=== PATIENT | male | born 1995 | race African-American/Black ===

== ENCOUNTER 2019-01-29 08:20 | Emergency (ER) | payer OTHER, SELFPAY ==
[2019-01-29] MEDS ORDERED: ONDANSETRON 4 MG (ODT) TAB ONE (09:06)
--- NOTE | 2019-01-29 09:43 | EDPHYS ---
Physician Documentation [facility] Name: Leandro Merino Age: 23 yrs Sex: Male : 1995 Arrival Date: 01/29/2019 Time: 08:25 Bed 16 Private MD: Unknown, Unknown ED Physician Zay Vinson HPI: 01/29 08:50 This 23 yrs old Black Male presents to ER via Ambulatory with complaints of Fever, cp MUSCLE TIGHTNESS. 08:50 The patient reports fever, not measured (subjective). Onset: The symptoms/episode cp began/occurred yesterday. Associated signs and symptoms: Pertinent positives: cough, nausea, sore throat, body aches and generalized muscle tightness, Pertinent negatives: diarrhea, headache, skin rash, vomiting. Historical: - Allergies: 08:27 No Known Allergies; rb1 - Home Meds: 08:27 None [Active]; rb1 - PMHx: 08:27 None; rb1 - PSHx: 08:27 Left leg; rb1 - Immunization history:: Flu vaccine is not up to date. - Social history:: Smoking status: Patient/guardian denies using tobacco. - Ebola Screening: : Patient negative for fever greater than or equal to 101.5 degrees Fahrenheit, and additional compatible Ebola Virus Disease symptoms. ROS: 08:55 Constitutional: Positive for body aches, Negative for fever, poor PO intake. cp 08:55 Eyes: Negative for injury, pain, redness, and discharge. cp 08:55 ENT: Positive for sore throat, Negative for drainage from ear(s), ear pain, sinus pain, difficulty swallowing, difficulty handling secretions. 08:55 Neck: Negative for pain with movement, pain at rest, stiffness. 08:55 Respiratory: Positive for cough, Negative for shortness of breath, wheezing. 08:55 Abdomen/GI: Positive for nausea, Negative for vomiting, diarrhea, constipation. 08:55 Skin: Negative for rash. 08:55 Neuro: Negative for altered mental status, headache, weakness. 08:55 All other systems are negative. Exam: 09:00 Head/Face: Normocephalic, atraumatic. cp 09:00 Constitutional: The patient appears in no acute distress, alert, awake, non-toxic, well developed, well nourished. 09:00 Eyes: Periorbital structures: appear normal, Conjunctiva: normal, no exudate, no injection, Lids and lashes: appear normal, bilaterally. 09:00 ENT: External ear(s): are unremarkable, Ear canal(s): are normal, clear, TM's: bulging, is not appreciated, bilaterally, dullness, bilaterally, erythema, is not appreciated, bilaterally, Nose: is normal, Mouth: Lips: moist, Oral mucosa: moist, Posterior pharynx: Airway: no evidence of obstruction, patent, Tonsils: with erythema, no enlargement, no exudate, Uvula: midline, swelling, is not appreciated, erythema, that is moderate, exudate, is not appreciated, Voice: is normal. 09:00 Neck: ROM/movement: is normal, is supple, without pain, no range of motions limitations, no meningismus, no nuchal rigidity, Lymph nodes: no appreciated lymphadenopathy. 09:00 Chest/axilla: Inspection: normal, Palpation: is normal, no crepitus, no tenderness. 09:00 Cardiovascular: Rate: normal, Rhythm: regular. 09:00 Respiratory: the patient does not display signs of respiratory distress, Respirations: normal, no use of accessory muscles, no retractions, no splinting, no tachypnea, labored breathing, is not present, Breath sounds: are clear throughout, no decreased breath sounds, no stridor, no wheezing. 09:00 Abdomen/GI: Exam negative for discomfort, distension, guarding, Inspection: abdomen appears normal. 09:00 Back: pain, is absent, ROM is normal. 09:00 Skin: no rash present. Vital Signs: 08:27 BP 118 / 97; Pulse 84; Resp 17; Temp 99.0(O); Pulse Ox 97% on R/A; Weight 83.91 kg (R); rb1 Height 5 ft. 7 in. (170.18 cm) (R); Pain 8/10; 09:35 BP 120 / 72; Pulse 60; Resp 16; Temp 98.9(O); Pulse Ox 98% on R/A; mh5 10:19 BP 120 / 72; Pulse 64; Resp 17; Temp 98.7(O); Pulse Ox 100% on R/A; Pain 6/10; rb1 08:27 Body Mass Index 28.97 (83.91 kg, 170.18 cm) rb1 MDM: 08:28 Patient medically screened. cp 09:00 Differential diagnosis: bronchitis, pneumonia gastroenteritis, meningitis, strep cp throat, influenza. 09:42 Data reviewed: vital signs, nurses notes, lab test result(s), and as a result, I will cp discharge patient. 09:42 Counseling: I had a detailed discussion with the patient and/or guardian regarding: the cp historical points, exam findings, and any diagnostic results supporting the discharge/admit diagnosis, lab results, to return to the emergency department if symptoms worsen or persist or if there are any questions or concerns that arise at home. Response to treatment: the patient's symptoms have mildly improved after treatment, and as a result, I will discharge patient. 01/29 08:47 Order name: Influenza Screen (a \T\ B); Complete Time: 09:33 cp 01/29 09:33 Interpretation: Reviewed. 01/29 08:47 Order name: Strep; Complete Time: 09:33 cp 01/29 09:33 Interpretation: Abnormal: GP A STREP SC \T\nbsp; GROUP A STREP SCREEN-- \T\nbsp; \T\nbsp; cp POSITIVE. Administered Medications: 08:55 Drug: Zofran 4 mg Route: PO; rb1 09:20 Follow up: Response: No adverse reaction; Nausea is decreased rb1 09:59 Drug: Bicillin L-A 1.2 million units Route: IM; Site: right gluteus; rb1 10:19 Follow up: Response: No adverse reaction rb1 Disposition: 01/30 07:20 Co-signature as Attending Physician, Zay Vinson MD I agree with the assessment and consuelo plan of care. Disposition: 01/29/19 09:42 Discharged to Home. Impression: Streptococcal pharyngitis. - Condition is Stable. - Discharge Instructions: Strep Throat, Form - Excuse from Work, School, or Physical Activity. - Prescriptions for Ibuprofen 800 mg Oral Tablet - take 1 tablet by ORAL route every 8 hours As needed take with food; 30 tablet. Zofran 4 mg Oral Tablet - take 1 tablet by ORAL route every 12 hours As needed; 10 tablet. - Medication Reconciliation Form, Thank You Letter, Antibiotic Education, Prescription Opioid Use, Work release form form. - Follow up: Private Physician; When: 48 Hours; Reason: Worsening of condition. - Problem is new. - Symptoms have improved. Signatures: Dispatcher [employer] EDZay Freeman MD MD cha Page, Corey, Miriam Biggs cp, RN RN rb1 Corrections: (The following items were deleted from the chart) 01/29 10:21 09:42 01/29/2019 09:42 Discharged to Home. Impression: Streptococcal pharyngitis. rb1 Condition is Stable. Forms are Medication Reconciliation Form, Thank You Letter, Antibiotic Education, Prescription Opioid Use. Follow up: Private Physician; When: 48 Hours; Reason: Worsening of condition. Problem is new. Symptoms have improved. cp
--- NOTE | 2019-01-29 09:43 | ER ---
Nurse's Notes [facility] Name: Leandro Merino Age: 23 yrs Sex: Male : 1995 Arrival Date: 01/29/2019 Time: 08:25 Bed 16 Private MD: Unknown, Unknown Diagnosis: Streptococcal pharyngitis Presentation: 01/29 08:27 Presenting complaint: Patient states: Started running fever yesterday. Transition of rb1 care: patient was not received from another setting of care. Onset of symptoms was January 28, 2019. Risk Assessment: Do you want to hurt yourself or someone else? Patient reports no desire to harm self or others. Care prior to arrival: Medication(s) given: Advil \T\ 0630 this morning. 08:27 Method Of Arrival: Ambulatory [facility] 08: Acuity: NICOLE 3 rb1 08: Initial Sepsis Screen: Does the patient meet any 2 criteria? No. Patient's initial rb1 sepsis screen is negative. Does the patient have a suspected source of infection? Yes: Productive cough/pneumonia. Triage Assessment: 08:27 General: Appears uncomfortable, Behavior is calm, cooperative, Reports fever for 1-2 rb1 days. Pain: Complains of pain in bodyaches Pain currently is 8 out of 10 on a pain scale. Pain began 1 day ago. Neuro: Level of Consciousness is awake, alert, obeys commands, Oriented to person, place, time, situation. Cardiovascular: Capillary refill < 3 seconds is brisk in bilateral fingers. Respiratory: Reports cough that is productive, yellow sputum Airway is patent Respiratory effort is even, unlabored, Respiratory pattern is regular, symmetrical. GI: No signs and/or symptoms were reported involving the gastrointestinal system. : No signs and/or symptoms were reported regarding the genitourinary system. Derm: Skin is dry, Skin is normal, Skin temperature is warm. Historical: - Allergies: : No Known Allergies; rb1 - Home Meds: : None [Active]; rb1 - PMHx: : None; rb1 - PSHx: : Left leg; rb1 - Immunization history:: Flu vaccine is not up to date. - Social history:: Smoking status: Patient/guardian denies using tobacco. - Ebola Screening: : Patient negative for fever greater than or equal to 101.5 degrees Fahrenheit, and additional compatible Ebola Virus Disease symptoms. Screenin:27 Abuse screen: Denies threats or abuse. Nutritional screening: No deficits noted. rb1 Tuberculosis screening: No symptoms or risk factors identified. Fall Risk None identified. Assessment: 08:27 General: See triage assessment. rb1 08:40 Reassessment: Pt. is feeling nauseous, provider notified. rb1 09:25 Reassessment: Patient appears in no apparent distress at this time. Patient and/or rb1 family updated on plan of care and expected duration. Pain level reassessed. Patient is alert, oriented x 3, equal unlabored respirations, skin warm/dry/pink. Patient states symptoms have improved. 10:00 Reassessment: Discharge pending due to shot time. rb1 Vital Signs: 08:27 BP 118 / 97; Pulse 84; Resp 17; Temp 99.0(O); Pulse Ox 97% on R/A; Weight 83.91 kg (R); rb1 Height 5 ft. 7 in. (170.18 cm) (R); Pain 8/10; 09:35 BP 120 / 72; Pulse 60; Resp 16; Temp 98.9(O); Pulse Ox 98% on R/A; mh5 10:19 BP 120 / 72; Pulse 64; Resp 17; Temp 98.7(O); Pulse Ox 100% on R/A; Pain 6/10; rb1 08:27 Body Mass Index 28.97 (83.91 kg, 170.18 cm) rb1 ED Course: 08:25 Patient arrived in ED. ag5 08:26 Unknown, Unknown is Private Physician. ag5 08:27 Miriam Seaman, RN is Primary Nurse. rb1 08:27 Arm band placed on right wrist. rb1 08:27 Patient has correct armband on for positive identification. Bed in low position. Call rb1 light in reach. Side rails up X 1. Pulse ox on. NIBP on. 08:28 Zay Dunne PA is PHCP. cp 08:28 Zay Vinson MD is Attending Physician. cp 08:35 Triage completed. rb1 09:00 Strep Sent. rb1 09:00 Influenza Screen (a \T\ B) Sent. rb1 10:20 No provider procedures requiring assistance completed. Patient did not have IV access rb1 during this emergency room visit. Administered Medications: 08:55 Drug: Zofran 4 mg Route: PO; rb1 09:20 Follow up: Response: No adverse reaction; Nausea is decreased rb1 09:59 Drug: Bicillin L-A 1.2 million units Route: IM; Site: right gluteus; rb1 10:19 Follow up: Response: No adverse reaction rb1 Outcome: 09:42 Discharge ordered by . cp 10:20 Discharged to home ambulatory, with significant other. rb1 10:20 Condition: stable 10:20 Discharge instructions given to patient, Instructed on discharge instructions, follow up and referral plans. medication usage, Demonstrated understanding of instructions, follow-up care, medications, Prescriptions given X 2. 10:21 Patient left the ED. rb1 Signatures: Zay Dunne PA PA cp Barber, Rebecca RN RN rb1 Lisbeth Cruz [facility] Isaac Moffett [facility]
[2019-01-29] MEDS ORDERED: PEN G BENZ LA 1.2MU/2ML SYRINGE IM ONE (10:12)
[2019-01-29 10:33] VITALS: BP 120/72; TEMP 98.7; O2SAT 100
== END 2019-01-29 10:21 | disposition home or self-care (01) ==
LOC: ER 08:20
DX: J02.0 Streptococcal pharyngitis (principal)
CPT/HCPCS: 87081; 87804; 96372; 99284; J0561

== ENCOUNTER 2019-04-13 11:12 | Emergency (ER) | payer SELFPAY ==
--- NOTE | 2019-04-13 11:45 | RAD REPORT ---
EXAM DESCRIPTION: RAD - Chest Pa And Lat (2 Views) - 04/13/2019 11:41 am CLINICAL HISTORY: COUGH Chest pain. COMPARISON: No comparisons FINDINGS: The lungs are clear. The heart is normal in size. No displaced fractures. IMPRESSION: No acute or concerning finding suspected.
[2019-04-13] MEDS ORDERED: IBUPROFEN 400 MG TAB ONE (11:50)
[2019-04-13] MEDS ORDERED: ONDANSETRON 4 MG (ODT) TAB ONE (11:50)
--- NOTE | 2019-04-13 12:40 | ER ---
Nurse's Notes [facility] Name: Leandro Merino Age: 23 yrs Sex: Male : 1995 Arrival Date: 04/13/2019 Time: 11:16 Bed 13 Private MD: None, None Diagnosis: Acute pharyngitis Presentation: 04/13 11:18 Presenting complaint: Patient states: sore throat since yesterday, pt states "it hurts aa5 to swallow and today I started coughing and I coughed up blood at work so they made me leave work". Pt also reports nausea. Pt denies night sweats, denies chills. Transition of care: patient was not received from another setting of care. Onset of symptoms was March 2019. Risk Assessment: Do you want to hurt yourself or someone else? Patient reports no desire to harm self or others. Care prior to arrival: None. 11:18 Acuity: NICOLE 3 aa5 11:18 Method Of Arrival: Ambulatory aa5 12:59 Initial Sepsis Screen: Does the patient meet any 2 criteria? No. Patient's initial bp sepsis screen is negative. Does the patient have a suspected source of infection? No. Patient's initial sepsis screen is negative. Triage Assessment: 11:20 General: Appears in no apparent distress. comfortable, Behavior is calm, cooperative, bp appropriate for age. Pain: Complains of pain in THROAT. EENT: Reports pain when swallowing. Neuro: No deficits noted. Cardiovascular: No deficits noted. Respiratory: No deficits noted. GI: No signs and/or symptoms were reported involving the gastrointestinal system. : No signs and/or symptoms were reported regarding the genitourinary system. Derm: No deficits noted. Musculoskeletal: No deficits noted. Historical: - Allergies: 11:20 No Known Allergies; aa5 - Home Meds: 11:20 None [Active]; aa5 - PMHx: 11:20 None; aa5 - PSHx: 11:20 Left leg; aa5 - Immunization history:: Adult Immunizations not up to date. - Social history:: Smoking status: Patient/guardian denies using tobacco. - Ebola Screening: : No symptoms or risks identified at this time. Screenin:20 Abuse screen: Denies threats or abuse. Denies injuries from another. Nutritional bp screening: No deficits noted. Tuberculosis screening: No symptoms or risk factors identified. Fall Risk None identified. Assessment: 11:20 General: SEE TRIAGE NOTE. Respiratory: Airway is patent Respiratory effort is even, bp unlabored, Respiratory pattern is regular, symmetrical, Breath sounds are clear bilaterally. EENT: Throat is reddened. 12:58 Reassessment: PT D/C HOME AMBULATORY WITH FAMILY, DX WITH VIRAL PHARYNGITIS. bp Vital Signs: 11:20 BP 128 / 73; Pulse 92; Resp 18 S; Temp 101.4(O); Pulse Ox 98% on R/A; Weight 81.65 kg aa5 (R); Height 5 ft. 7 in. (170.18 cm) (R); Pain 8/10; 12:31 BP 123 / 66; Pulse 83; Resp 16; Temp 99.5; Pulse Ox 99% ; bp 11:20 Body Mass Index 28.19 (81.65 kg, 170.18 cm) aa5 ED Course: 11:16 Patient arrived in ED. mr 11:16 None, None is Private Physician. mr 11:19 Delmis Major, [facility] kb 11:19 Alexandro Thomas MD is Attending Physician. kb 11:19 Triage completed. aa5 11:19 Arm band placed on. aa5 11:20 Patient has correct armband on for positive identification. Bed in low position. Call bp light in reach. Side rails up X2. 11:28 Dylon Granados, RN is Primary Nurse. bp 11:35 X-ray completed. Patient tolerated procedure well. Patient moved back from radiology. jb2 11:37 Chest Pa And Lat (2 Views) XRAY In Process Unspecified. EDMS 12:28 Throat Culture Sent. bp 12:58 No provider procedures requiring assistance completed. Patient did not have IV access bp during this emergency room visit. Administered Medications: 11:54 Drug: Ibuprofen 600 mg Route: PO; bp 12:27 Follow up: Response: No adverse reaction bp 11:54 Drug: Zofran 4 mg Route: PO; bp 12:27 Follow up: Response: No adverse reaction bp Outcome: 12:40 Discharge ordered by . kb 12:59 Discharged to home ambulatory, with family. bp 12:59 Condition: stable 12:59 Discharge instructions given to patient, Instructed on discharge instructions, follow up and referral plans. Demonstrated understanding of instructions, follow-up care. 13:00 Patient left the ED. bp Signatures: Dispatcher [employer] EDMS Delmis Major, EZEQUIEL-Addie RAGMAN-Robi Yaz Vidales, Nadeem jb2 Marianne Andres, RN RN aa5 Dylon Granados RN RN bp Corrections: (The following items were deleted from the chart) 11:21 11:18 Presenting complaint: Patient states: sore throat since yesterday, pt states "it aa5 hurts to swallow and today I started coughing and I coughed up blood at work so they made me leave work". Pt also reports nausea. aa5
--- NOTE | 2019-04-13 12:41 | EDPHYS ---
Physician Documentation [facility] Name: Leandro Merino Age: 23 yrs Sex: Male : 1995 Arrival Date: 04/13/2019 Time: 11:16 Bed 13 Private MD: None, None ED Physician Alexandro Tohmas HPI: 04/13 12:25 This 23 yrs old Black Male presents to ER via Ambulatory with complaints of Sore Throat.kb 12:25 The patient presents with sore throat. The patient describes throat pain as constant. kb Onset: The symptoms/episode began/occurred 2 day(s) ago. Severity of symptoms: At their worst the symptoms were moderate, in the emergency department the symptoms are unchanged. Modifying factors: The symptoms are alleviated by nothing, the symptoms are aggravated by swallowing, Patient's oral intake status: good Denies contact with similarly ill indivduals. Associated signs and symptoms: Pertinent positives: cough, Sore throat. The patient has not experienced similar symptoms in the past. The patient has not recently seen a physician. Historical: - Allergies: 11:20 No Known Allergies; aa5 - Home Meds: 11:20 None [Active]; aa5 - PMHx: 11:20 None; aa5 - PSHx: 11:20 Left leg; aa5 - Immunization history:: Adult Immunizations not up to date. - Social history:: Smoking status: Patient/guardian denies using tobacco. - Ebola Screening: : No symptoms or risks identified at this time. ROS: 12:23 Constitutional: Negative for fever, chills, and weight loss, Neck: Negative for injury, kb pain, and swelling, Cardiovascular: Negative for chest pain, palpitations, and edema, Abdomen/GI: Negative for abdominal pain, nausea, vomiting, diarrhea, and constipation, Back: Negative for injury and pain, : Negative for injury, bleeding, discharge, and swelling, MS/Extremity: Negative for injury and deformity, Skin: Negative for injury, rash, and discoloration, Neuro: Negative for headache, weakness, numbness, tingling, and seizure. 12:23 ENT: Positive for sore throat. 12:23 Respiratory: Positive for cough, Negative for dyspnea on exertion, hemoptysis, orthopnea, pleurisy, shortness of breath, sputum production, wheezing. Exam: 12:23 Constitutional: This is a well developed, well nourished patient who is awake, alert, kb and in no acute distress. Head/Face: Normocephalic, atraumatic. Chest/axilla: Normal chest wall appearance and motion. Nontender with no deformity. No lesions are appreciated. Cardiovascular: Regular rate and rhythm with a normal S1 and S2. No gallops, murmurs, or rubs. Normal PMI, no JVD. No pulse deficits. Respiratory: Lungs have equal breath sounds bilaterally, clear to auscultation and percussion. No rales, rhonchi or wheezes noted. No increased work of breathing, no retractions or nasal flaring. Abdomen/GI: Soft, non-tender, with normal bowel sounds. No distension or tympany. No guarding or rebound. No evidence of tenderness throughout. Skin: Warm, dry with normal turgor. Normal color with no rashes, no lesions, and no evidence of cellulitis. MS/ Extremity: Pulses equal, no cyanosis. Neurovascular intact. Full, normal range of motion. Neuro: Awake and alert, GCS 15, oriented to person, place, time, and situation. Cranial nerves II-XII grossly intact. Motor strength 5/5 in all extremities. Sensory grossly intact. Cerebellar exam normal. Normal gait. 12:23 ENT: TM's: are normal, Nose: is normal, Mouth: is normal, Posterior pharynx: Airway: normal, no evidence of obstruction, Tonsils: with erythema, Uvula: normal, midline, swelling, that is mild, erythema, that is marked, exudate, is not appreciated. Vital Signs: 11:20 BP 128 / 73; Pulse 92; Resp 18 S; Temp 101.4(O); Pulse Ox 98% on R/A; Weight 81.65 kg aa5 (R); Height 5 ft. 7 in. (170.18 cm) (R); Pain 8/10; 12:31 BP 123 / 66; Pulse 83; Resp 16; Temp 99.5; Pulse Ox 99% ; bp 11:20 Body Mass Index 28.19 (81.65 kg, 170.18 cm) aa5 MDM: 11:22 Patient medically screened. kb 12:24 Data reviewed: vital signs, nurses notes. Data interpreted: Pulse oximetry: on room air kb is 98 %. Interpretation: normal. Counseling: I had a detailed discussion with the patient and/or guardian regarding: the historical points, exam findings, and any diagnostic results supporting the discharge/admit diagnosis, lab results, radiology results, the need for outpatient follow up, a family practitioner, to return to the emergency department if symptoms worsen or persist or if there are any questions or concerns that arise at home. 04/13 11:20 Order name: Strep; Complete Time: 12:02 kb 04/13 11:25 Order name: Flu; Complete Time: 12:17 kb 04/13 11:25 Order name: Chest Pa And Lat (2 Views) XRAY; Complete Time: 11:46 kb 04/13 12:04 Order name: Throat Culture EDNM 04/13 12:27 Order name: Vital Signs; Complete Time: 12:31 kb Administered Medications: 11:54 Drug: Ibuprofen 600 mg Route: PO; bp 12:27 Follow up: Response: No adverse reaction bp 11:54 Drug: Zofran 4 mg Route: PO; bp 12:27 Follow up: Response: No adverse reaction bp Disposition: 13:25 Co-signature as Attending Physician, Alexandro Thomas MD. Chart complete. rn Disposition: 04/13/19 12:40 Discharged to Home. Impression: Acute pharyngitis. - Condition is Stable. - Discharge Instructions: Pharyngitis, [id number], Viral Respiratory Infection, [id number]. - Medication Reconciliation Form, Thank You Letter, Antibiotic Education, Prescription Opioid Use, Work release form form. - Follow up: Emergency Department; When: As needed; Reason: Worsening of condition. Follow up: Private Physician; When: 2 - 3 days; Reason: Recheck today's complaints, Continuance of care, Re-evaluation by your physician. Signatures: Dispatcher [employer] EDNM Delmis Major, FIRESETTER-C FIRESETTER-Ckb Alexandro Thomas MD MD rn Calderon, Audri, RN RN aa5 Dylon Granados RN RN bp Corrections: (The following items were deleted from the chart) 13:00 12:40 04/13/2019 12:40 Discharged to Home. Impression: Acute pharyngitis. Condition is bp Stable. Discharge Instructions: Pharyngitis, [id number], Viral Respiratory Infection, [id number]. Forms are Medication Reconciliation Form, Thank You Letter, Antibiotic Education, Prescription Opioid Use. Follow up: Emergency Department; When: As needed; Reason: Worsening of condition. Follow up: Private Physician; When: 2 - 3 days; Reason: Recheck today's complaints, Continuance of care, Re-evaluation by your physician. kb
[2019-04-13 13:11] VITALS: BP 123/66; TEMP 99.5; O2SAT 99
== END 2019-04-13 13:00 | disposition home or self-care (01) ==
LOC: ER 11:12
DX: J02.9 Acute pharyngitis, unspecified (principal)
CPT/HCPCS: 71046; 87070; 87081; 87804; 99283

== ENCOUNTER → 2023-09-25 | Emergency (ER) | payer SELFPAY ==
[~2023-09-25] MED LIST: KETOROLAC 30 MG/ML INJ ONE
--- OUTSIDE RECORDS SUMMARY | 2023-09-25 13:31 | XMS REPORT | Continuity of Care Document ---
Author Name Unknown Address [address] [facility] [address] [place] [address] [facility] Address [address] [facility] [address] [place] [address] Care Team Providers Care Manhole Stripper Name Role Phone Mark Davis MD Attending Clinician MARK DAVIS Attending Clinician Unavailable Allergies, Adverse Reactions, Alerts Allergy Name Allergy Type Status Severity Reaction(s) Onset Date Inactive Date Treating Clinician Comments Source NO KNOWN ALLERGIE S Drug Class Active [facility] Social History Social Habit Start Date Stop Date Quantity Comments Source Sex Assigned At [facility] Exposure to SARS-CoV-2 (event) [facility] to assess [facility] Smoking Status Start Date Stop Date Source Unknown if ever smoked [facility] Medications Ordered Medication Name Filled Medication Name Start Date Stop Date Current Medication? Ordering Clinician Indication Dosage Frequency Signature (SIG) Comments Components Source proMETHazin e 25 mg tablet 16 00:00: 00 Yes 25mg Take 1 tablet by mouth every 8 (eight) hours as needed for Nausea and Vomiting (N/V). [facility] acetaminoph en-codeine (TYLENOL-CO DEINE #3) 300-30 mg tablet 11-11 00:00: 00 Yes 1{tbl} Take 1-2 Tabs by mouth every 4 (four) hours as needed for Pain (scale 4-6) or Pain (scale 7-10). [facility] Encounters Start Date/Time End Date/Time Encounter Type Admission Type Attending Clinicians Care Facility Care Department Encounter ID Source 2022-05-18 15:38:00 2022-05-18 15:38:00 Outpatient Mariza Corrigan [facility] [id number] 3 [facility] 2020-06-18 05:47:00 2020-06-18 05:48:00 Emergency Mark Davis [facility] [id number] [facility] 2020-06-18 05:19:00 2020-06-18 05:19:00 Emergency X MARK DAVIS [facility] ERT [id number] [facility]
[2023-09-25 13:51] LABS: Absolute Lymphocytes (CBC) 0.6 K/uL (0.7-4.9); Hematocrit 38.4 % (39.6-49.0); Lymphocytes % 9.1 % (15.3-44.8); MCV 87.2 fL (80-100); MPV 7.5 fL (7.6-11.3); Platelets 206 thou/uL (152-406)
[2023-09-25 14:17] LABS: Magnesium 1.9 mg/dL (1.6-2.4); Potassium 3.5 mEq/L (3.5-5.1); Troponin High Sensitivity 37.7 pg/mL (<58.9)
--- NOTE | 2023-09-25 14:17 | RAD REPORT ---
EXAM DESCRIPTION: Betsey Single View09/25/2023 1:57 pm CLINICAL HISTORY: Chest pain COMPARISON: 2018 FINDINGS: The lungs appear clear of acute infiltrate. The heart is normal size IMPRESSION: No acute abnormalities displayed
--- NOTE | 2023-09-25 16:27 | EDPHYS ---
Physician Documentation [facility] Name: Leandro Merino Age: 28 yrs Sex: Male : 1995 Arrival Date: 09/25/2023 Time: 13:29 Bed 5 Private MD: ED Physician Zay Vinson HPI: 09/25 13:34 This 28 yrs old Black Male presents to ER via Ambulatory with complaints of Chest Pain, kb Arm Pain - left. 13:35 Pt is a 28 year old male who presents for cough that started last night and left chest kb pain that started around 0200. States the pain is worse with movement, palpation and raising left arm. Denies shortness of breath. unknown fever. Historical: - Allergies: 13:34 No Known Allergies; bp - Home Meds: 13:34 None [Active]; bp - PMHx: 13:34 None; bp - Immunization history:: Adult Immunizations up to date. - Social history:: Smoking status: Patient denies any tobacco usage or history of. ROS: 13:34 Constitutional: Negative for fever, chills, and weight loss, kb 13:34 Cardiovascular: Positive for chest pain, with cough, with movement, 13:34 Respiratory: Positive for cough, 13:34 All other systems are negative, Exam: 13:34 Constitutional: This is a well developed, well nourished patient who is awake, alert, kb and in no acute distress. Head/Face: Normocephalic, atraumatic. ENT: Moist Mucous membranes Cardiovascular: Regular rate Respiratory: Respirations even and unlabored. No increased work of breathing. Talking in full sentences Abdomen/GI: Soft, non-tender. No distention Skin: Warm, dry with normal turgor. Normal color. MS/ Extremity: Pulses equal, no cyanosis. Neurovascular intact. Full, normal range of motion. Neuro: Awake and alert, GCS 15, oriented to person, place, time, and situation. Moves all extremities. Normal gait. 13:34 Chest/axilla: Inspection: normal, Palpation: tenderness, that is moderate, of the anterior aspect of left upper chest and left breast, that totally reproduces the patient's complaints, 13:55 ECG was reviewed by the Attending Physician. kb Vital Signs: 13:33 BP 120 / 81; Pulse 82; Resp 16; Temp 97.3; Pulse Ox 97% ; Weight 81.65 kg; Height 5 ft. bp 7 in. ; 14:41 BP 122 / 72; Pulse 65; Resp 18; Pulse Ox 98% ; ld1 15:55 BP 125 / 81; Pulse 56; Resp 16 S; Pulse Ox 100% on R/A; kc6 16:37 BP 127 / 79; Pulse 58; Resp 18; Pulse Ox 100% on R/A; ld1 13:33 Body Mass Index 28.19 (81.65 kg, 170.18 cm) bp MDM: 13:29 Patient medically screened. kb 13:34 Data reviewed: vital signs, nurses notes. kb 13:34 Differential diagnosis: abnormal EKG, acute myocardial infarction, chest wall pain, kb flu, covid, pneumonia, pleurisy. 16:25 Consideration of Admission/Observation Escalation of care including kb admission/observation considered. admission considered for chest pain. Heart score 0, serial troponin decreased from the first. Counseling: I had a detailed discussion with the patient and/or guardian regarding the historical points, exam findings, and any diagnostic results supporting the discharge/admit diagnosis, lab results, radiology results, the need for outpatient follow up, a family practitioner, to return to the emergency department if symptoms worsen or persist or if there are any questions or concerns that arise at home. 09/25 13:33 Order name: Basic Metabolic Panel; Complete Time: 14:17 kb 09/25 13:33 Order name: CBC with Diff; Complete Time: 13:57 kb 09/25 13:33 Order name: Magnesium; Complete Time: 14:17 kb 09/25 13:33 Order name: NT PRO-BNP; Complete Time: 14:17 kb 09/25 13:33 Order name: Troponin HS; Complete Time: 14:17 kb 09/25 13:33 Order name: Flu; Complete Time: 14:29 kb 09/25 13:33 Order name: COVID-19 SARS RT PCR; Complete Time: 14:40 kb 09/25 13:33 Order name: D-Dimer; Complete Time: 14:11 kb 09/25 15:20 Order name: Troponin High Sensitivity; Complete Time: 16:25 kb 09/25 13:33 Order name: XRAY Chest (1 view); Complete Time: 14:17 kb 09/25 13:33 Order name: EKG; Complete Time: 13:34 kb 09/25 13:33 Order name: Cardiac monitoring; Complete Time: 13:47 kb 09/25 13:33 Order name: EKG - Nurse/Tech; Complete Time: 13:47 kb 09/25 13:33 Order name: IV Saline Lock; Complete Time: 13:48 kb 09/25 13:33 Order name: Labs collected and sent; Complete Time: 13:48 kb 09/25 13:33 Order name: O2 Per Protocol; Complete Time: 13:35 kb 09/25 13:33 Order name: O2 Sat Monitoring; Complete Time: 13:35 kb EC:55 Rate is 67 beats/min. Rhythm is regular. QRS [place] is Normal. [place] interval is normal at kb 140 msec. QRS interval is normal at 92 msec. QT interval is normal at 377 msec. Administered Medications: 15:47 Drug: Ketorolac IVP 15 mg IVP once Route: IVP; Site: right antecubital; kc6 16:34 Follow up: Response: No adverse reaction; Pain is decreased kc6 Disposition Summary: 09/25/23 16:26 Discharge Ordered Notes: Location: Home kb Condition: Stable kb Diagnosis - Chest pain, unspecified kb Followup: kb - With: Emergency Department - When: As needed - Reason: Worsening of condition Followup: kb - With: Private Physician - When: 2 - 3 days - Reason: Recheck today's complaints, Continuance of care, Re-evaluation by your physician Discharge Instructions: - Discharge Summary Sheet kb - Chest Wall Pain, [id number] kb - Nonspecific Chest Pain, Adult, [id number] kb Forms: - Medication Reconciliation Form kb - Thank You Letter kb - Antibiotic Education kb - Prescription Opioid Use kb - Patient Portal Instructions kb - Leadership Thank You Letter kb Prescriptions: - Ibuprofen 800 mg Oral Tablet - take 1 tablet ORAL route every 8 hours As needed take with food; 30 tablet; kb Refills: 0, Product Selection Permitted Signatures: Dispatcher [employer] Delmis Plascencia FNP-C FNP-Ckb Peltier, Brian, RN RN Kisha Liz RN RN kc6
--- NOTE | 2023-09-25 16:27 | ER ---
Nurse's Notes [facility] Name: Leandro Merino Age: 28 yrs Sex: Male : 1995 Arrival Date: 09/25/2023 Time: 13:29 Bed 5 Private MD: Diagnosis: Chest pain, unspecified Presentation: 09/25 13:33 Chief complaint: Patient states: COUGH AND CHEST TIGHTNESS SINCE LAST PM, REPRODUCIBLE bp WITH PALPATION AND COUGH. Coronavirus screen: At this time, the client does not indicate any symptoms associated with coronavirus-19. Ebola Screen: No symptoms or risks identified at this time. Initial Sepsis Screen: Does the patient meet any 2 criteria? No. Patient's initial sepsis screen is negative. Does the patient have a suspected source of infection? No. Patient's initial sepsis screen is negative. Risk Assessment: Do you want to hurt yourself or someone else? Patient reports no desire to harm self or others. Onset of symptoms is unknown. 13:33 Method Of Arrival: Ambulatory bp 13:33 Acuity: NICOLE 3 bp Historical: - Allergies: 13:34 No Known Allergies; bp - Home Meds: 13:34 None [Active]; bp - PMHx: 13:34 None; bp - Immunization history:: Adult Immunizations up to date. - Social history:: Smoking status: Patient denies any tobacco usage or history of. Screenin:48 [facility] ED Fall Risk Assessment (Adult) History of falling in the last 3 months, ld1 including since admission No falls in past 3 months (0 pts). Abuse screen: Denies threats or abuse. Denies injuries from another. Nutritional screening: No deficits noted. Tuberculosis screening: No symptoms or risk factors identified. Assessment: 13:48 General: Appears in no apparent distress. comfortable, Behavior is calm, cooperative, ld1 appropriate for age. Pain: Complains of pain in chest and left breast and anterior aspect of left upper chest Pain does not radiate. Pain currently is 8 out of 10 on a pain scale. Quality of pain is described as throbbing, Pain began suddenly. Neuro: Level of Consciousness is awake, alert, obeys commands, Oriented to person, place, time, situation. Cardiovascular: Capillary refill < 3 seconds Patient's skin is warm and dry. Rhythm is sinus rhythm. Respiratory: Airway is patent Respiratory effort is even, unlabored. Respiratory: Reports cough that is non-productive. GI: Abdomen is flat, non-distended. : No signs and/or symptoms were reported regarding the genitourinary system. EENT: No signs and/or symptoms were reported regarding the EENT system. Derm: No signs and/or symptoms reported regarding the dermatologic system. Musculoskeletal: No signs and/or symptoms reported regarding the musculoskeletal system. 14:48 Reassessment: Patient appears in no apparent distress at this time. No changes from kc6 previously documented assessment. Patient and/or family updated on plan of care and expected duration. Pain level reassessed. Patient is alert, oriented x 3, equal unlabored respirations, skin warm/dry/pink. 15:48 Reassessment: Patient appears in no apparent distress at this time. No changes from kc6 previously documented assessment. Patient and/or family updated on plan of care and expected duration. Pain level reassessed. Patient is alert, oriented x 3, equal unlabored respirations, skin warm/dry/pink. 16:37 Reassessment: Patient appears in no apparent distress at this time. No changes from ld1 previously documented assessment. Patient and/or family updated on plan of care and expected duration. Pain level reassessed. Vital Signs: 13:33 BP 120 / 81; Pulse 82; Resp 16; Temp 97.3; Pulse Ox 97% ; Weight 81.65 kg; Height 5 ft. bp 7 in. ; 14:41 BP 122 / 72; Pulse 65; Resp 18; Pulse Ox 98% ; ld1 15:55 BP 125 / 81; Pulse 56; Resp 16 S; Pulse Ox 100% on R/A; kc6 16:37 BP 127 / 79; Pulse 58; Resp 18; Pulse Ox 100% on R/A; ld1 13:33 Body Mass Index 28.19 (81.65 kg, 170.18 cm) bp ED Course: 13:29 Patient arrived in ED. im 13:29 Delmis Major FNP-C is PHCP. kb 13:29 Zay Vinson MD is Attending Physician. kb 13:34 Triage completed. bp 13:34 Arm band placed on. bp 13:47 Oneida Bailey, PENELOPE is Primary Nurse. ld1 13:48 Patient has correct armband on for positive identification. Placed in gown. Bed in low ld1 position. Call light in reach. Side rails up X2. nurse monitoring on. Pulse ox on. NIBP on. Door closed. Noise minimized. Warm blanket given. 13:48 COVID-19 SARS RT PCR Sent. ld1 13:48 Flu Sent. ld1 13:48 D-Dimer Sent. ld1 13:48 No provider procedures requiring assistance completed. Inserted saline lock: 20 gauge ld1 in right antecubital area, using aseptic technique. Blood collected. Patient maintains SpO2 saturation greater than 95% on room air. 13:59 XRAY Chest (1 view) In Process Unspecified. EDMS 16:38 IV discontinued, intact, bleeding controlled, No redness/swelling at site. ld1 Administered Medications: 15:47 Drug: Ketorolac IVP 15 mg IVP once Route: IVP; Site: right antecubital; kc6 16:34 Follow up: Response: No adverse reaction; Pain is decreased kc6 Medication: 13:48 VIS not applicable for this client. ld1 Outcome: 16:26 Discharge ordered by . kb 16:37 Discharged to home ambulatory, ld1 16:37 Condition: stable 16:37 Discharge instructions given to patient, Instructed on discharge instructions, follow up and referral plans. medication usage, Demonstrated understanding of instructions, follow-up care, medications, Prescriptions given X 1, 16:38 Patient left the ED. ld1 Signatures: Dispatcher [employer] EDMS Delmis Major, CERTIFIED SCRUM MASTER-C CERTIFIED SCRUM MASTER-Dylon Cordova RN RN Oneida Patel RN RN ld1 Kisha Nixon RN RN kc6 Mariann Goddard
[2023-09-25 18:55] VITALS: BP 127/79; TEMP 97.3; O2SAT 100
--- NOTE | 2023-09-26 13:24 | EKG ---
Test Date: 2023-09-25 Test Time: 13:52:01 Rouge Mixer: Mark DEGROOT MEASUREMENT RESULTS: Intervals: Rate: 64 NC: 140 QRSD: 92 QT: 366 QTc: 377 Burt: P: 58 NC: 140 QRS: 85 T: 40 INTERPRETIVE STATEMENTS: Normal sinus rhythm Normal ECG No previous ECG available for comparison Electronically Signed On 09-26-23 13:22:11 TALENT REP by Bob Padron
== END ==
LOC: ER 13:29
DX: R07.89 Other chest pain (principal)
CPT/HCPCS: 36415; 71045; 80048; 83735; 83880; 84484; 85025; 85379; 87635; 87804; 93005

== ENCOUNTER 2024-04-28 07:39 | Emergency (ER) | payer SELFPAY ==
--- OUTSIDE RECORDS SUMMARY | 2024-04-28 07:42 | XMS REPORT | Continuity of Care Document ---
Author Name Unknown Address [address] [facility] [address] [place] [address] [facility] Address [address] [facility] [address] [place] [address] Care Team Providers Care Meat Carrier Name Role Phone Mark Davis MD Attending Clinician [phone] MARK DAVIS Attending Clinician Unavailable Allergies, Adverse Reactions, Alerts Allergy Name Allergy Type Status Severity Reaction(s) Onset Date Inactive Date Treating Clinician Comments Source NO KNOWN ALLERGIE S Drug Class Active [facility] Social History Social Habit Start Date Stop Date Quantity Comments Source Sex Assigned At [facility] Exposure to SARS-CoV-2 (event) Unable to assess [facility] Smoking Status Start Date Stop Date Source Unknown if ever smoked [facility] Medications Ordered Medication Name Filled Medication Name Start Date Stop Date Current Medication? Ordering Clinician Indication Dosage Frequency Signature (SIG) Comments Components Source proMETHazin e 25 mg tablet 16 00:00: 00 Yes 25mg Take 1 tablet by mouth every 8 (eight) hours as needed for Nausea and Vomiting (N/V). [facility] acetaminoph en-codeine (TYLENOL-CO DEINE #3) 300-30 mg tablet 11-11 00:00: 00 Yes 1{tbl} Take 1-2 Tabs by mouth every 4 (four) hours as needed for Pain (scale 4-6) or Pain (scale 7-10). [facility] Encounters Start Date/Time End Date/Time Encounter Type Admission Type Attending Clinicians Care Facility Care Department Encounter ID Source 2022-05-18 15:38:00 2022-05-18 15:38:00 Outpatient Mariza Corrigan [facility] [id number] [facility] 2020-06-18 05:47:00 2020-06-18 05:48:00 Emergency Mark Davis [facility] [id number] [facility] 2020-06-18 05:19:00 2020-06-18 05:19:00 Emergency X MARK DAVIS [facility] ERT [id number] [facility]
[2024-04-28 08:29] LABS: SARS-CoV-2 Antigen CONTROL BLUE LINE VIS/BG OK; SARS-CoV-2 Antigen Rapid Res Negative (Negative)
--- NOTE | 2024-04-28 08:50 | RAD REPORT ---
[facility] CLINICAL HISTORY: COUGH COMPARISON: Chest Single View dated 09/25/2023; Chest Pa And Lat (2 Views) dated 04/13/2019 TECHNIQUE: Portable AP view of the chest. FINDINGS: The lungs are clear. No pneumothorax or effusion. The cardiomediastinal contours are unre markable. IMPRESSION: No acute cardiopulmonary process.
--- NOTE | 2024-04-28 09:14 | EDPHYS ---
Physician Documentation [facility] Name: Leandro Merino Age: 28 yrs Sex: Male : 1995 Arrival Date: 04/28/2024 Time: 07:39 Bed 15 Private MD: ED Physician Alexandro Thomas HPI: 04/28 08:03 This 28 yrs old Black Male presents to ER via Ambulatory with complaints of Flu rn Symptoms. 08:03 The patient or guardian reports cough, flu symptoms. Onset: The symptoms/episode rn began/occurred 3 day(s) ago. Severity of symptoms: At their worst the symptoms were mild, in the emergency department the symptoms are unchanged. Modifying factors: The symptoms are alleviated by nothing, the symptoms are aggravated by nothing. Associated signs and symptoms: Pertinent positives: fever, rhinorrhea, Pertinent negatives: chest pain. The patient has not experienced similar symptoms in the past. Patient reports subjective fever and chills associated with nasal congestion and cough. No shortness of breath. Denies smoking history. No cardiac disease. No sick contacts.. Historical: - Allergies: 07:49 No Known Allergies; db - Home Meds: 07:49 None [Active]; db - PMHx: 07:49 None; db - Immunization history:: Adult Immunizations unknown. - Infectious Disease History:: Denies. - Social history:: Smoking status: Reported history of juuling and/or vaping. - Family history:: not pertinent. - Hospitalizations: : No recent hospitalization is reported. ROS: 08:03 Constitutional: Positive for subjective fever and chills Cardiovascular: Negative for rn chest pain, palpitations, and edema, Respiratory: Positive for cough, negative for shortness of breath Abdomen/GI: Negative for abdominal pain, nausea, vomiting, diarrhea, and constipation, MS/Extremity: Negative for injury and deformity, Neuro: Negative for headache, weakness, numbness, tingling, and seizure, Exam: 08:03 Constitutional: This is a well developed, well nourished patient who is awake, alert, rn and in no acute distress. Head/Face: Normocephalic, atraumatic. ENT: Dry mucous membranes, no stridor Neck: No meningismus Cardiovascular: Regular rate and rhythm. No pulse deficits. Respiratory: Speaking full sentences, unlabored. No increased work of breathing, no retractions or nasal flaring. Abdomen/GI: Soft, nontender Neuro: Awake and alert, GCS 15 Vital Signs: 07:47 BP 119 / 93; Pulse 56; Resp 18; Temp 97.9(O); Pulse Ox 99% ; Weight 81.65 kg; Height 5 db ft. 6 in. ; 08:00 BP 108 / 57; Pulse 50; Resp 16; Pulse Ox 100% on R/A; db 09:00 BP 120 / 73; Pulse 50; Resp 16; Pulse Ox 100% on R/A; db 07:47 Body Mass Index 29.05 (81.65 kg, 167.64 cm) db MDM: 07:42 Patient medically screened. rn 09:12 Differential Diagnosis: Bronchitis Influenza Upper Respiratory Infection Sinusitis rn Pharyngitis Viral Syndrome Pneumonia. Data reviewed: vital signs, nurses notes, lab test result(s), radiologic studies, plain films, and as a result, I will discharge patient. Counseling: I had a detailed discussion with the patient and/or guardian regarding the historical points, exam findings, and any diagnostic results supporting the discharge/admit diagnosis, lab results, radiology results, the need for outpatient follow up, to return to the emergency department if symptoms worsen or persist or if there are any questions or concerns that arise at home. Special discussion: I discussed with the patient/guardian in detail that at this point there is no indication for admission to the hospital. It is understood, however, that if the symptoms persist or worsen the patient needs to return immediately for re-evaluation. 04/28 07:42 Order name: SARS RAPID; Complete Time: 08:31 rn 04/28 07:42 Order name: Flu; Complete Time: 08:31 rn 04/28 07:51 Order name: XRAY Chest (1 view); Complete Time: 08:51 rn Administered Medications: No medications were administered Disposition Summary: 04/28/24 09:13 Discharge Ordered Notes: Location: Home rn Problem: new rn Symptoms: have improved rn Condition: Stable rn Diagnosis - Cough rn - Acute upper respiratory infection, unspecified rn Followup: rn - With: Private Physician - When: As needed - Reason: Recheck today's complaints, Re-evaluation by your physician Discharge Instructions: - Discharge Summary Sheet rn - Fever, Adult rn - Cough, Adult rn Forms: - Medication Reconciliation Form rn - Antibiotic internal audit manager - Prescription Opioid Use rn - Patient Portal Instructions rn - Leadership Thank You Letter rn Prescriptions: - Zithromax Z-Efe 250 mg Oral Tablet - take 1 tablet ORAL route as directed for 5 days Day 1 - take two (2) tablets rn one time. Day 2, 3, 4 , 5 take one (1) tablet once daily.; 6 tablet; Refills: 0, Product Selection Permitted Signatures: Dispatcher [employer] EDMS Alexandro Thomas MD MD rn Benton, Danielle, RN RN db Corrections: (The following items were deleted from the chart) 07:52 07:51 Chest Single View+[email or web address] ordered. EDMS EDMS
--- NOTE | 2024-04-28 09:14 | ER ---
Nurse's Notes [facility] [address] Name: Leandro Merino Age: 28 yrs Sex: Male : 1995 Arrival Date: 04/28/2024 Time: 07:39 Bed 15 Private MD: Diagnosis: Cough;Acute upper respiratory infection, unspecified Presentation: 04/28 07:47 Chief complaint: Chief complaint: Patient states: FLU/COVID SYMPTOMS X 3 DAYS WITH BODY db [place]WEATS. 07:47 Coronavirus screen: Client denies travel out of the [place] in the last 14 days. At this db time, the client does not indicate any symptoms associated with coronavirus-19. Ebola Screen: Patient negative for fever greater than or equal to 101.5 degrees Fahrenheit, and additional compatible Ebola Virus Disease symptoms Patient denies exposure to infectious person. Patient denies travel to an Ebola-affected area in the 21 days before illness onset. No symptoms or risks identified at this time. Initial Sepsis Screen: Does the patient meet any 2 criteria? No. Patient's initial sepsis screen is negative. Does the patient have a suspected source of infection? No. Patient's initial sepsis screen is negative. Risk Assessment: Do you want to hurt yourself or someone else? Patient reports no desire to harm self or others. Onset of symptoms was April 26, 2024. 07:47 Method Of Arrival: Ambulatory db 07:47 Acuity: NICOLE 4 db Triage Assessment: 07:49 General: Appears in no apparent distress. comfortable, Behavior is calm, cooperative. db Pain: Denies pain. Neuro: Level of Consciousness is awake, alert, obeys commands, Oriented to person, place, time, situation. Respiratory: Airway is patent Respiratory effort is even, unlabored, Respiratory pattern is regular, symmetrical. Historical: - Allergies: 07:49 No Known Allergies; db - Home Meds: 07:49 None [Active]; db - PMHx: 07:49 None; db - Immunization history:: Adult Immunizations unknown. - Infectious Disease History:: Denies. - Social history:: Smoking status: Reported history of juuling and/or vaping. - Family history:: not pertinent. - Hospitalizations: : No recent hospitalization is reported. Screenin:00 [facility] ED Fall Risk Assessment (Adult) History of falling in the last 3 months, db including since admission No falls in past 3 months (0 pts) Confusion or Disorientation No (0 pts) Intoxicated or Sedated No (0 pts) Impaired Gait No (0 pts) Mobility Assist Device Used No (0 pt) Altered Elimination No (0 pt) Score/Fall Risk Level 0 - 2 = Low Risk Oriented to surroundings, Maintained a safe environment. Abuse screen: Denies threats or abuse. Denies injuries from another. Nutritional screening: No deficits noted. Tuberculosis screening: No symptoms or risk factors identified. Assessment: 08:00 Reassessment: Patient appears in no apparent distress at this time. Patient and/or db family updated on plan of care and expected duration. Pain level reassessed. Patient is alert, oriented x 3, equal unlabored respirations, skin warm/dry/pink. SEE TRIAGE FOR INITIAL ASSESSMENT. 09:31 Reassessment: Patient appears in no apparent distress at this time. Patient and/or db family updated on plan of care and expected duration. Pain level reassessed. Patient is alert, oriented x 3, equal unlabored respirations, skin warm/dry/pink. General: Appears in no apparent distress. comfortable, Behavior is calm, cooperative. Neuro: Level of Consciousness is awake, alert, obeys commands, Oriented to person, place, time, situation. Vital Signs: 07:47 BP 119 / 93; Pulse 56; Resp 18; Temp 97.9(O); Pulse Ox 99% ; Weight 81.65 kg; Height 5 db ft. 6 in. ; 08:00 BP 108 / 57; Pulse 50; Resp 16; Pulse Ox 100% on R/A; db 09:00 BP 120 / 73; Pulse 50; Resp 16; Pulse Ox 100% on R/A; db 07:47 Body Mass Index 29.05 (81.65 kg, 167.64 cm) db ED Course: 07:41 Patient arrived in ED. ra3 07:42 Alexandro Thomas MD is Attending Physician. rn 07:47 Charlette Machado, PENELOPE is Primary Nurse. db 07:49 Triage completed. db 07:49 Arm band placed on Patient placed in an exam room. db 07:59 COVID swab sent to lab. Flu and/or RSV swab sent to lab. db 08:00 Patient has correct armband on for positive identification. Bed in low position. Call db light in reach. Side rails up X 1. Pulse ox on. NIBP on. Pillow given. 08:20 Warm blanket given. db 08:37 XRAY Chest (1 view) In Process Unspecified. EDMS 09:30 Provided Education on: DISCHARGE, MEDICATIONS AND FOLLOWUP. db 09:30 No provider procedures requiring assistance completed. Patient did not have IV access db during this emergency room visit. Administered Medications: No medications were administered Medication: :30 VIS not applicable for this client. db Outcome: 09:13 Discharge ordered by . rn 09:30 Discharged to home ambulatory, db 09:30 Condition: stable 09:30 Discharge instructions given to patient, Instructed on discharge instructions, follow up and referral plans. Prescriptions given X 1, 09:32 Patient left the ED. db Signatures: Dispatcher [employer] EDMS Alexandro Thomas MD MD rn Benton, Danielle, RN RN Kamila Reyna ra3 Corrections: (The following items were deleted from the chart) 07:49 07:47 Chief complaint: db db
[2024-04-28 09:36] VITALS: TEMP 97.9
[2024-04-28 09:37] VITALS: O2SAT 100
[2024-04-28 09:38] VITALS: BP 120/73
== END 2024-04-28 09:32 | disposition home or self-care (01) ==
LOC: ER 07:39
DX: J06.9 Acute upper respiratory infection, unspecified (principal); Z11.52 Encounter for screening for COVID-19
CPT/HCPCS: 36415; 71045; 87804; 87811; 99284